=== PATIENT | female | born 1955 | race Caucasian/White ===

== ENCOUNTER → 2016-06-02 | Day surgery (SDC) | payer BC | LOC: MSO 07:47 | DX: Z12.11 Encounter for screening for malignant neoplasm of colon (principal); Z80.0 Family history of malignant neoplasm of digestive organs; Z86.010 Personal history of colon polyps; D12.2 Benign neoplasm of ascending colon | CPT/HCPCS: 00810; J3010; J7120 ==

== ENCOUNTER 2018-12-08 10:00 | Outpatient (RCR) | payer BC | END 2018-12-08 10:30 | disposition still patient (30) | LOC: PT 10:00 | DX: M54.5 Low back pain (principal) ==

== ENCOUNTER → 2019-04-15 | Outpatient (CLI) | payer BC | LOC: CARDREHAB 15:20 | DX: R06.83 Snoring (principal) | CPT/HCPCS: G0399 ==

== ENCOUNTER → 2020-08-16 | Outpatient (CLI) | payer MEDICARE, BC | LOC: MAMMO 08:55 | DX: Z12.31 Encounter for screening mammogram for malignant neoplasm of breast (principal); Z78.0 Asymptomatic menopausal state ==

== ENCOUNTER → 2020-08-16 | Outpatient (CLI) | payer MEDICARE, BC | LOC: RAD 09:44 → MAMMO 10:00 | DX: M81.0 Age-related osteoporosis without current pathological fracture (principal); Z78.0 Asymptomatic menopausal state ==